=== PATIENT | female | born 1950 | race Caucasian/White ===

== ENCOUNTER 2022-11-06 13:46 | Emergency (ER) | payer MEDICARE, OTHER ==
[~2022-11-06] VITALS: Ht 162.6 cm; Wt 54.0 kg
[2022-11-06 15:43] VITALS: BP 148/81
== END 2022-11-06 15:45 | disposition home or self-care (01) ==
LOC: ED 13:46
DX: S61.412A Laceration without foreign body of left hand, initial encounter (principal); W26.8XXA Contact with other sharp object(s), not elsewhere classified, initial encounter; Z23 Encounter for immunization; Z88.5 Allergy status to narcotic agent; Z91.012 Allergy to eggs; Z91.040 Latex allergy status
CPT/HCPCS: 12001; 90471; 90714; 99282-25